=== PATIENT | male | born 1955 | race Caucasian/White ===

== ENCOUNTER 2017-06-05 00:45 | Emergency (ER) | payer OTHER ==
[2017-06-05 00:45] VITALS: BMI 26.6
--- NOTE | 2017-06-05 01:10 | C.PDOC ---
History Of Present Illness Patient presents to ED with complaints of high blood pressure, nausea and vomiting. Patient states he was drinking salty soup, felt nauseous and vomited and then "felt better". Patient took high blood pressure medication and denies chest pain, sob, palpitations and is speaking in full sentences. No other complaints at this time. Time Seen by Provider: 06/05/17 01:10 Chief Complaint (Nursing): High Blood Pressure History Per: Patient History/Exam Limitations: no limitations Onset/Duration Of Symptoms: Hrs Current Symptoms Are (Timing): Still Present Associated Symptoms: denies: Chest Pain Quality Of Symptoms: Asymptomatic Severity: Mild Past Medical History Reviewed: Historical Data, Nursing Documentation, Vital Signs Vital Signs: Last Vital Signs Temp 97.6 F 06/05/17 00:59 Pulse 62 06/05/17 00:59 Resp 16 06/05/17 00:59 BP 135/76 06/05/17 01:18 Pulse Ox 97 06/05/17 01:31 - Medical History PMH: CAD, Diabetes, HTN, Hypercholesterolemia, Peripheral Edema, Rheumatoid Arthritis Surgical History: CABG Family History: States: No Known Family Hx - Social History Hx Tobacco Use: No Hx Alcohol Use: No Hx Substance Use: No - Immunization History Hx Tetanus Toxoid Vaccination: Yes Hx Influenza Vaccination: No Hx Pneumococcal Vaccination: Yes Review Of Systems Constitutional: Negative for: Fever, Chills Eyes: Negative for: Pain Cardiovascular: Negative for: Chest Pain Respiratory: Negative for: Shortness of Breath Gastrointestinal: Positive for: Nausea, Vomiting Musculoskeletal: Negative for: Back Pain Skin: Negative for: Rash Neurological: Negative for: Weakness Psych: Negative for: Anxiety Physical Exam - Physical Exam Appears: Non-toxic, No Acute Distress Skin: Warm, Dry, No Rash Head: Normacephalic Eye(s): bilateral: Normal Inspection Oral Mucosa: Moist Neck: Supple Chest: Other (CABG scar) Cardiovascular: Rhythm Regular Respiratory: No Rales, No Rhonchi, No Wheezing Gastrointestinal/Abdominal: Soft, No Tenderness, No Guarding, No Rebound Back: No CVA Tenderness Extremity: No Pedal Edema, Capillary Refill (<2 seconds) Extremity: Bilateral: Atraumatic, Normal Color And Temperature, Normal ROM Pulses: Left Dorsalis Pedis: Normal, Right Dorsalis Pedis: Normal Neurological/Psych: Oriented x3, Normal Speech, Normal Cognition Gait: Steady ED Course And Treatment O2 Sat by Pulse Oximetry: 97 (RA) Pulse Ox Interpretation: Normal Progress Note: Patient does not want blood work, just blood pressure to be checked. Understands that ther are risks including worsening condition, permanent disability and , but pt states that he just had blood work 2 days ago and an ekg and he just wants to have his bp check. Pt feels fine and wants to go home . Encouraged to return Medical Decision Making Medical Decision Making: Upon provider reevaluation patient is feeling better, is medically stable, and requires no further treatment in the ED at this time. Patient will be discharged home . Counseling was provided and all questions were answered regarding diagnosis and need for follow up with marlen acosta. There is agreement to discharge plan. Return if symptoms persist or worsen. Disposition Counseled Patient/Family Regarding: Studies Performed, Diagnosis, Need For Followup - Disposition Referrals: Tika Acosta [Staff Provider] - Disposition: HOME/ ROUTINE Disposition Time: 01:10 Condition: FAIR Additional Instructions: Please return of symptoms recur Instructions: Hypertension (DC) Forms: [facility] (Macedonian) - Clinical Impression Clinical Impression: Hypertension - Scribe Statement The provider has reviewed the documentation as recorded by the Scribe Bryce Carrion All medical record entries made by the Scribe were at my direction and personally dictated by me. I have reviewed the chart and agree that the record accurately reflects my personal performance of the history, physical exam, medical decision making, and the department course for this patient. I have also personally directed, reviewed, and agree with the discharge instructions and disposition.
[2017-06-05 02:13] VITALS: BP 141/76; PULSE 69; RESP 17; TEMP 97.9
[2017-06-05 02:14] VITALS: O2SAT 97
== END 2017-06-05 02:18 | disposition home or self-care (01) ==
LOC: C.ER 00:45
DX: I10 Essential (primary) hypertension (principal); F17.210 Nicotine dependence, cigarettes, uncomplicated

== ENCOUNTER 2018-03-01 15:09 | Emergency (ER) | payer MEDICAID, OTHER ==
[2018-03-01 15:13] VITALS: BMI 30.2
[2018-03-01 15:16] VITALS: O2SAT 98
[2018-03-01 15:39] LABS: URINE BILIRUBIN NEGATIVE (NEGATIVE); URINE BLOOD NEGATIVE (NEGATIVE); URINE CLARITY Clear (Clear); URINE COLOR Yellow (YELLOW); URINE GLUCOSE (UA) NORMAL (Normal); URINE LEUKOCYTE ESTERASE NEG Leu/uL (Negative); URINE PROTEIN 2+ mg/dL (NEGATIVE); URINE UROBILINOGEN NORMAL mg/dL (0.2-1.0)
[2018-03-01 16:08] LABS: BASO % 0.2 % (0.0-2.0); EOS # 0.1 K/uL (0.0-0.7); EOS % 3.4 % (0.0-4.0); HEMOGLOBIN 13.2 g/dL (12.0-18.0); LYMPH # 1.7 K/uL (1.0-4.3); LYMPH % 40.1 % (20.0-40.0); MEAN CORPUSCULAR HEMOGLOBIN 25.6 pg (27.0-31.0); MEAN CORPUSCULAR HGB CONC 33.7 g/dL (33.0-37.0); MEAN PLATELET VOLUME 8.6 fL (7.2-11.7); MONO # 0.3 K/uL (0.0-0.8); NEUT # 2.1 K/uL (1.8-7.0); NEUT % 48.3 % (50.0-75.0); NRBC % 0.1 % (0.0-2.0); RBC 5.18 Mil/uL (4.40-5.90); RED CELL DISTRIBUTION WIDTH 14.4 % (11.5-14.5); WHITE BLOOD COUNT 4.3 K/uL (4.8-10.8)
--- NOTE | 2018-03-01 16:10 | C.PDOC ---
History Of Present Illness 62 y/o male with history of BPH presents to ED with complaints of bilateral inguinal pain for 2 days. Patient states he called Dr. Castillo office for symptoms and was advised he come to ED for further evaluation. Patient denies fever, nausea, difficulty urinating, hematuria, testicular pain or swelling. Time Seen by Provider: 03/01/18 15:31 Chief Complaint (Nursing): Male Genitourinary History Per: Patient History/Exam Limitations: no limitations Onset/Duration Of Symptoms: Days Current Symptoms Are (Timing): Still Present Quality Of Discomfort: "Pain" Past Medical History Reviewed: Historical Data, Nursing Documentation, Vital Signs Vital Signs: Last Vital Signs Temp 98.7 F 03/01/18 16:57 Pulse 61 03/01/18 16:57 Resp 20 03/01/18 16:57 BP 165/83 H 03/01/18 16:57 Pulse Ox 98 03/01/18 17:19 - Medical History PMH: CAD, Diabetes, HTN, Hypercholesterolemia, Hyperlipidemia (dyslipidemia), Hyperthyroidism, Peripheral Edema, Rheumatoid Arthritis Surgical History: CABG (x6) Family History: States: No Known Family Hx - Social History Hx Tobacco Use: No Hx Alcohol Use: No Hx Substance Use: No - Immunization History Hx Tetanus Toxoid Vaccination: Yes Hx Influenza Vaccination: No Hx Pneumococcal Vaccination: Yes Review Of Systems Constitutional: Negative for: Fever, Chills Respiratory: Negative for: Cough, Shortness of Breath Gastrointestinal: Negative for: Nausea, Vomiting, Abdominal Pain Genitourinary: Positive for: Other (Inguinal pain). Negative for: Dysuria, Incontinence, Hematuria, Penile Discharge, Scrotal Pain, Penile Pain Skin: Negative for: Rash Physical Exam - Physical Exam Appears: Well, Non-toxic, No Acute Distress Skin: Warm, Dry, No Rash Head: Atraumatic, Normacephalic Eye(s): bilateral: Normal Inspection Oral Mucosa: Moist Neck: Normal ROM, Supple Cardiovascular: Rhythm Regular Respiratory: Normal Breath Sounds, No Rales, No Rhonchi, No Wheezing Gastrointestinal/Abdominal: Soft, No Tenderness, No Guarding, No Rebound Male Genital: Normal Inspection, No Testicular Tenderness, No Testicular Swelling, No Inguinal Tenderness, No Inguinal Swelling, Circumcised Extremity: Bilateral: Atraumatic Neurological/Psych: Oriented x3, Normal Speech Gait: Steady ED Course And Treatment - Laboratory Results Result Diagrams: 03/01/18 15:58 07/06/18 15:58 Lab Interpretation: No Acute Changes O2 Sat by Pulse Oximetry: 98 (RA) Pulse Ox Interpretation: Normal - CT Scan/US CT abd/pelvis w/o contrast Other Rad Studies (CT/US): Read By Radiologist, Radiology Report Reviewed CT/US Interpretation: PROCEDURE: CT Abdomen and Pelvis without intravenous contrast. HISTORY: Right-sided pain history of calculus disease. COMPARISON: None. TECHNIQUE: Unenhanced study. Neither oral nor intravenous contrast administered. Radiation dose: Total exam DLP = 597.11 mGy-cm. This CT exam was performed using one or more of the following dose reduction techniques: Automated exposure control, adjustment of the mA and/or kV according to patient size, and/or use of iterative reconstruction technique. FINDINGS: LOWER THORAX : Unremarkable. LIVER: Unremarkable. No gross lesion or ductal dilatation. GALLBLADDER AND BILE DUCTS: Unremarkable. PANCREAS: Unremarkable. No gross lesion or ductal dilatation. SPLEEN: Unremarkable. ADRENALS: Unremarkable. No mass. KIDNEYS AND URETERS: Unremarkable. No hydronephrosis. No solid mass. VASCULATURE: Unremarkable. No aortic aneurysm. BOWEL: Constipation without fecal impaction or obstruction. APPENDIX: Unremarkable. Normal appendix. PERITONEUM: Unremarkable. No free fluid. No free air. LYMPH NODES: Unremarkable. No enlarged lymph nodes. BLADDER: Unremarkable. REPRODUCTIVE: Unremarkable. BONES: No acute fracture. OTHER FINDINGS: None. IMPRESSION: No significant or acute findings to account for/ related to the clinical presentation. Additional benign and/or incidental findings described above. Medical Decision Making Medical Decision Making: Impression: inguinal pain Plan: * CT abd/pelvis * Blood work Progress: Spoke with Dr. Castillo, awaiting results labs reviewed no leukocytosis, urine shows protein, no blood or LE CT shows no acute abnormality Patient asking to leave has to get to bank and pickup . unable to reach Dr Castillo. Patient is stable with normal vital signs and no acute pain or distress during ED observation. Advise follow up in his office Disposition Counseled Patient/Family Regarding: Studies Performed, Diagnosis, Need For Followup - Disposition Referrals: Billy Castillo MD [Staff Provider] - Disposition: HOME/ ROUTINE Disposition Time: 16:52 Condition: GOOD Additional Instructions: Follow up with your urologist in 2-5 days for further evaluation. Take tylenol or motrin for any pain. Return to the emergency department at any time if symptoms persist or worsen. Instructions: Acute Abdomen (Belly Pain), Adult (DC) Forms: [facility] (Omani) - POA Present On Arrival: None - Clinical Impression Clinical Impression: Inguinal pain of both sides - PA / [employer]ZER / Resident Statement MD/DO has reviewed & agrees with the documentation as recorded. - Scribe Statement The provider has reviewed the documentation as recorded by the Ubaldoibchepe Carrion All medical record entries made by the Magdiel were at my direction and personally dictated by me. I have reviewed the chart and agree that the record accurately reflects my personal performance of the history, physical exam, medical decision making, and the department course for this patient. I have also personally directed, reviewed, and agree with the discharge instructions and disposition.
[2018-03-01 16:23] LABS: ALB/GLOB RATIO 1.3 (1.0-2.1); ALBUMIN 4.2 g/dL (3.5-5.0); ALT/SGPT 36 U/L (21-72); AST/SGOT 34 U/L (17-59); CALCIUM 8.4 mg/dl (8.6-10.4); GFR AFRICAN-AMERICAN > 60; GFR NON-AFRICAN AMERICAN > 60
[2018-03-01 16:28] LABS: BLOOD UREA NITROGEN 16 mg/dL (9-20)
--- NOTE | 2018-03-01 16:40 | CT ---
PROCEDURE: CT Abdomen and Pelvis without intravenous contrast HISTORY: Right-sided pain history of calculus disease COMPARISON: None. TECHNIQUE: Unenhanced study. Neither oral nor intravenous contrast administered. Radiation dose: Total exam DLP = 597.11 mGy-cm. This CT exam was performed using one or more of the following dose reduction techniques: Automated exposure control, adjustment of the mA and/or kV according to patient size, and/or use of iterative reconstruction technique. FINDINGS: LOWER THORAX: Unremarkable. LIVER: Unremarkable. No gross lesion or ductal dilatation. GALLBLADDER AND BILE DUCTS: Unremarkable. PANCREAS: Unremarkable. No gross lesion or ductal dilatation. SPLEEN: Unremarkable. ADRENALS: Unremarkable. No mass. KIDNEYS AND URETERS: Unremarkable. No hydronephrosis. No solid mass. VASCULATURE: Unremarkable. No aortic aneurysm. BOWEL: Constipation without fecal impaction or obstruction. APPENDIX: Unremarkable. Normal appendix. PERITONEUM: Unremarkable. No free fluid. No free air. LYMPH NODES: Unremarkable. No enlarged lymph nodes. BLADDER: Unremarkable. REPRODUCTIVE: Unremarkable. BONES: No acute fracture. OTHER FINDINGS: None. IMPRESSION: No significant or acute findings to account for/ related to the clinical presentation. Additional benign and/or incidental findings described above.
[2018-03-01 16:59] VITALS: BP 165/83; PULSE 61; RESP 20; TEMP 98.7
== END 2018-03-01 17:01 | disposition home or self-care (01) ==
LOC: C.ER 15:09
DX: R10.30 Lower abdominal pain, unspecified (principal)

== ENCOUNTER 2018-11-05 01:17 | Emergency (ER) | payer OTHER | END 2018-11-05 04:02 | disposition home or self-care (01) | LOC: C.ER 01:17 ==